=== PATIENT | male | born 1985 | race Caucasian/White ===

== ENCOUNTER 2016-12-17 21:43 | Emergency (ER) | payer OTHER ==
[~2016-12-17] VITALS: Ht 198.1 cm; Wt 99.8 kg
[2016-12-17 21:47] VITALS: BP 136/53
== END 2016-12-17 22:11 | disposition home or self-care (01) ==
LOC: ER 21:45
DX: S52.501A Unspecified fracture of the lower end of right radius, initial encounter for closed fracture (principal); M19.90 Unspecified osteoarthritis, unspecified site; W19.XXXA Unspecified fall, initial encounter; Y93.67 Activity, basketball; Y92.89 Other specified places as the place of occurrence of the external cause; Y99.8 Other external cause status
CPT/HCPCS: 73110; 99284; A4606; Z7610